=== PATIENT | female | born 1970 ===

== ENCOUNTER 2020-01-29 19:34 | Emergency (ER) | payer OTHER, SELFPAY ==
--- NOTE | 2020-01-29 21:26 | EDPHYS ---
Physician Documentation [facility] Name: Carmencita Graf Age: 49 yrs Sex: Female : 1970 Arrival Date: 01/29/2020 Time: 20:22 Bed 24 Private MD: ED Physician Pop Jaeger HPI: 01/29 00:10 This 49 yrs old Female presents to ER via Wheelchair with complaints of Leg Pain. snw 00:10 The patient presents with pain, that is acute. The complaints affect the bilateral snw ankles and feet. Context: The problem was sustained at home, resulted from a chronic condition, essential htn, PCP changed her HCTZ to 25mg from 12.5 but the pharmacy did not change dose when filled. Edema has improved at this time with elevation of lower extremities. Onset: The symptoms/episode began/occurred gradually, 2 day(s) ago, and became persistent. Associated signs and symptoms: The patient has no apparent associated signs or symptoms. Severity of symptoms: At their worst the symptoms were mild. The patient has experienced similar episodes in the past. It is unknown whether or not the patient has recently seen a physician. Historical: - Allergies: 01/28 20:26 No Known Allergies; mg2 - PMHx: 20:26 Hypertension; Diabetes - IDDM; CVA; mg2 - Immunization history:: Flu vaccine is up to date. - Social history:: Smoking status: Patient denies any tobacco usage or history of. Patient/guardian denies using alcohol, street drugs, IV drugs. ROS: 01/29 00:06 Constitutional: Negative for fever, chills, and weight loss, Eyes: Negative for injury, snw pain, redness, and discharge, ENT: Negative for injury, pain, and discharge, Neck: Negative for injury, pain, and swelling, Cardiovascular: Negative for chest pain, palpitations, and edema, Respiratory: Negative for shortness of breath, cough, wheezing, and pleuritic chest pain, Abdomen/GI: Negative for abdominal pain, nausea, vomiting, diarrhea, and constipation, Back: Negative for injury and pain, : Negative for injury, bleeding, discharge, and swelling, + frequency, urgency, burning on urination Neuro: Negative for headache, weakness, numbness, tingling, and seizure. Skin: Negative for injury, rash, and discoloration. MS/extremity: Positive for swelling, tenderness, of the right foot and left foot. Exam: 00:06 Constitutional: This is a well developed, well nourished patient who is awake, alert, snw and in no acute distress. Head/Face: Normocephalic, atraumatic. Eyes: Pupils equal round and reactive to light, extra-ocular motions intact. Lids and lashes normal. Conjunctiva and sclera are non-icteric and not injected. Cornea within normal limits. Periorbital areas with no swelling, redness, or edema. ENT: Nares patent. No nasal discharge, no septal abnormalities noted. Tympanic membranes are normal and external auditory canals are clear. Oropharynx with no redness, swelling, or masses, exudates, or evidence of obstruction, uvula midline. Mucous membranes moist. Neck: Trachea midline, no thyromegaly or masses palpated, and no cervical lymphadenopathy. Supple, full range of motion without nuchal rigidity, or vertebral point tenderness. No Meningismus. Chest/axilla: Normal chest wall appearance and motion. Nontender with no deformity. No lesions are appreciated. Cardiovascular: Regular rate and rhythm with a normal S1 and S2. No gallops, murmurs, or rubs. Normal PMI, no JVD. No pulse deficits. Respiratory: Lungs have equal breath sounds bilaterally, clear to auscultation and percussion. No rales, rhonchi or wheezes noted. No increased work of breathing, no retractions or nasal flaring. Abdomen/GI: Soft, non-tender, with normal bowel sounds. No distension or tympany. No guarding or rebound. No evidence of tenderness throughout. Back: No spinal tenderness. No costovertebral tenderness. Full range of motion. Skin: Warm, dry with normal turgor. Normal color with no rashes, no lesions, and no evidence of cellulitis. MS/ Extremity: Pulses equal, no cyanosis. Neurovascular intact. Full, normal range of motion. Neuro: Awake and alert, GCS 15, oriented to person, place, time, and situation. Cranial nerves II-XII grossly intact. Motor strength 5/5 in all extremities. Sensory grossly intact. Cerebellar exam normal. Normal gait. Psych: Awake, alert, with orientation to person, place and time. Behavior, mood, and affect are within normal limits. Vital Signs: 01/28 20:22 BP 186 / 101; Pulse 86; Resp 18; Temp 98.6; Pulse Ox 100% on R/A; Weight 81.65 kg; mg2 Height 5 ft. 0 in. (152.40 cm); 20:22 Body Mass Index 35.15 (81.65 kg, 152.40 cm) mg2 MDM: 21:10 Patient medically screened. snw 01/29 00:08 Data reviewed: vital signs, nurses notes. Data interpreted: Pulse oximetry: on room air snw is 100 %. Interpretation: acceptable. Counseling: I had a detailed discussion with the patient and/or guardian regarding: the historical points, exam findings, and any diagnostic results supporting the discharge/admit diagnosis, the presence of at least one elevated blood pressure reading (>120/80) during this emergency department visit, lab results, the need for outpatient follow up, for definitive care. Response to treatment: the patient's symptoms have mildly improved after treatment. Special discussion: I have referred the patient to see his PCP for further evaluation of high blood pressure. Based on the history and exam findings, there is no indication for further emergent testing or inpatient evaluation. I discussed with the patient/guardian the need to see the primary care provider for further evaluation of the symptoms. 01/28 21:22 Order name: Urine Microscopic Only [facility] 01/28 21:27 Order name: Urine Culture [facility] 01/28 20:35 Order name: Chest Single View XRAY; Complete Time: 21:46 snw 01/28 21:43 Order name: Urine Dipstick--Ancillary (enter results) tt3 01/28 21:03 Order name: Urine Dipstick-Ancillary (obtain specimen); Complete Time: 21:04 ls4 Administered Medications: 01/28 21:51 Drug: Hydrochlorothiazide 12.5 mg Route: PO; ls4 21:51 Drug: Rocephin (cefTRIAXone) 1 grams Route: IM; Site: left deltoid; ls4 Disposition: 01/29 05:58 Co-signature as Attending Physician, Pop Jaeger MD I agree with the assessment and tw4 plan of care. Disposition: 01/29/20 21:25 Discharged to Home. Impression: Edema, unspecified, Essential (primary) hypertension, Urinary tract infection, site not specified. - Condition is Stable. - Discharge Instructions: Urinary Tract Infection, Adult, DASH Eating Plan, Rehydration, Adult, Managing Your Hypertension, Form - Blood Pressure Record Sheet, Peripheral Edema. - Prescriptions for Augmentin 875- 125 mg Oral Tablet - take 1 tablet by ORAL route every 12 hours for 10 days; 20 tablet. Diflucan 150 mg Oral Tablet - take 1 tablet by ORAL route one time for 1 day To take upon completion of antibiotics; 1 tablet. - Work release form, Medication Reconciliation Form, Thank You Letter, Antibiotic Education, Prescription Opioid Use form. - Follow up: Private Physician; When: 2 - 3 days; Reason: Recheck today's complaints, Continuance of care, Re-evaluation by your physician. Follow up: Emergency Department; When: As needed; Reason: Worsening of condition. Signatures: Dispatcher [employer] EDMS Cristal Ventura FNP-C [employer] Pop Jaeger MD MD tw4 Bakari Echeverria RN RN mg2 Sanam Mejia RN RN ls4 Corrections: (The following items were deleted from the chart) 01/28 21:59 21:25 01/29/2020 21:25 Discharged to Home. Impression: Edema, unspecified; Essential ls4 (primary) hypertension; Urinary tract infection, site not specified. Condition is Stable. Forms are Medication Reconciliation Form, Thank You Letter, Antibiotic Education, Prescription Opioid Use. Follow up: Private Physician; When: 2 - 3 days; Reason: Recheck today's complaints, Continuance of care, Re-evaluation by your physician. Follow up: Emergency Department; When: As needed; Reason: Worsening of condition. snw
--- NOTE | 2020-01-29 21:26 | ER ---
Nurse's Notes [facility] Name: Carmencita Graf Age: 49 yrs Sex: Female : 1970 Arrival Date: 01/29/2020 Time: 20:22 Bed 24 Private MD: Diagnosis: Edema, unspecified;Essential (primary) hypertension;Urinary tract infection, site not specified Presentation: 01/28 20:22 Chief complaint: Patient states: i have bilateral leg swelling today. i also have mg2 bruise on my stomach. Coronavirus screen: Proceed with normal triage. Patient denies a cough. Patient denies shortness of breath or difficulty breathing. Patient denies measured and/or subjective temperature greater than 100.4F prior to today's visit. Patient denies travel on a cruise ship or to a country the [facility] currently lists as an affected area. Patient denies contact with known and/or suspected case of COVID-19. Ebola Screen: No symptoms or risks identified at this time. Initial Sepsis Screen: Does the patient meet any 2 criteria? No. Patient's initial sepsis screen is negative. Does the patient have a suspected source of infection? No. Patient's initial sepsis screen is negative. Risk Assessment: Do you want to hurt yourself or someone else? Patient reports no desire to harm self or others. Onset of symptoms was January 29, 2020. 20:22 Method Of Arrival: Wheelchair mg2 20:22 Acuity: CHARLEEN 3 mg2 Historical: - Allergies: 20:26 No Known Allergies; mg2 - PMHx: 20:26 Hypertension; Diabetes - IDDM; CVA; mg2 - Immunization history:: Flu vaccine is up to date. - Social history:: Smoking status: Patient denies any tobacco usage or history of. Patient/guardian denies using alcohol, street drugs, IV drugs. Screenin:47 Abuse screen: Denies threats or abuse. Denies injuries from another. Nutritional ls4 screening: No deficits noted. Tuberculosis screening: No symptoms or risk factors identified. Fall Risk None identified. Assessment: 20:44 General: Appears in no apparent distress. obese, Behavior is anxious. Pain: Complains ls4 of pain in right leg and left leg Pain currently is 7 out of 10 on a pain scale. Neuro: No deficits noted. Cardiovascular: Reports bruising Denies chest pain, diaphoresis, fatigue, lightheadedness, nausea, palpitations, shortness of breath, syncope, vomiting. Cardiovascular: Pulses are 2+ in right dorsalis pedis artery and left dorsalis pedis artery Edema is 1+ to left foot and right foot. Respiratory: Airway is patent Respiratory effort is even, unlabored, Respiratory pattern is regular, Breath sounds are clear bilaterally. Derm: Reports bruising. Musculoskeletal: Circulation, motion, and sensation intact. Capillary refill < 3 seconds, Range of motion: intact in all extremities, Swelling absent. Vital Signs: 20:22 BP 186 / 101; Pulse 86; Resp 18; Temp 98.6; Pulse Ox 100% on R/A; Weight 81.65 kg; mg2 Height 5 ft. 0 in. (152.40 cm); 20:22 Body Mass Index 35.15 (81.65 kg, 152.40 cm) mg2 ED Course: 20:22 Patient arrived in ED. ag3 20:25 Triage completed. mg2 20:26 Arm band placed on. mg2 20:34 Cristal Davey [facility]C [facility]. snw 20:34 Pop Jaeger MD is Attending Physician. snw 20:36 Sanam Mejia, ALEX is Primary Nurse. ls4 20:47 Patient has correct armband on for positive identification. Placed in gown. Bed in low ls4 position. Call light in reach. Side rails up X2. campus monitor on. Pulse ox on. NIBP on. Verbal reassurance given. Diet: Patient is NPO. 21:23 Chest Single View XRAY In Process Unspecified. EDMS Administered Medications: 21:51 Drug: Hydrochlorothiazide 12.5 mg Route: PO; ls4 21:51 Drug: Rocephin (cefTRIAXone) 1 grams Route: IM; Site: left deltoid; ls4 Outcome: 21:25 Discharge ordered by . snw 21:59 Patient left the ED. ls4 Addendum: 02/03/2020 19:36 Addendum: Culture Results: Positive urine culture. No further action required. Bacteria i w sensitive to prescribed antibiotic. Signatures: Dispatcher [employer] EDMS Cristal Ventura FNP-C [employer] Pia Walsh RN RN Bakari Echeverria RN RN [facility] Lillian John ag3 Roberto, Sanam, RN RN ls4
--- OUTSIDE RECORDS SUMMARY | 2020-01-29 21:30 | XMS REPORT | Continuity of Care Document ---
:1970 Author Organization [facility] t Address [address] [place] [address] Care Team Providers Name Role Phone Unavailable Unavailable Unavailable Payers Payer Name Policy Type Policy Number Effective Date Expiration Date S ource Problems This patient has no known problems. Allergies, Adverse Reactions, Alerts Allergy Allergy Status Severity Reaction(s) Onset Inactive Treating Comm ents Source Name Type Date Date Clinician No Known DA Active U 2018-07 [facility]14 [place] 00:00: [address] No Known DA Active U [facility] 24 [place] s 00:00: [address] Medications This patient has no known medications. Procedures This patient has no known procedures. Results Test Description Test Time Test Comments Results Result Comments Source COMPREHENSIVE METABOLIC PANEL 2019-06-22 16:41:00 Test Item Value Reference Range Interpretation Comme nts SODIUM (test code = NA) 132 mmol/L 136-145 L POTASSIUM (test code = K) 3.7 mmol/L 3.5-5.1 N CHLORIDE (test code = CL) 97 mmol/L 98-107 L CARBON DIOXIDE (test code = 30 mmol/L 21-32 N CO2) GLUCOSE (test code = GLU) 370 mg/dL 65-99 H BLOOD UREA NITROGEN (test code 16 mg/dL 7-18 N = BUN) GLOMERULAR FILTRATION RATE 71 R eporting units: (test code = GFR) ml/min/1.7 3m\S\2 (Modified MDRD Formula)If age < 18 years, GFR is not applicab le. KD/DOQI Clinical Practi ce Guidelines: Stage 1: Kidney damage w/normal or increased GF R >90Stage 2: Kidney damage w /mild decrease in GFR 60 - 89Stage 3: Moderate decrea se in GFR 30 - 59Stage 4: Severe decrease in GFR 15 - 29Stage 5: Kidney failure < 15 (or dialysis) CREATININE (test code = CREAT) 0.9 mg/dL 0.6-1.0 N TOTAL PROTEIN (test code = 7.4 g/dL 6.4-8.2 N PROT) ALBUMIN (test code = ALB) 3.4 g/dL 3.4-5.0 N GLOBULIN (test code = GLOB) 4.0 gm/dL 2.3-3.5 H ALBUMIN/GLOBULIN RATIO (test 0.9 1.5-2.2 L code = A/G) CALCIUM (test code = CA) 9.0 mg/dL 7.8-10.9 N BILIRUBIN TOTAL (test code = 0.3 mg/dL 0.0-1.1 N BILT) SGOT/AST (test code = AST) 23 U/L 15-37 N R eporting units: International Units/L SGPT/ALT (test code = ALT) 32 U/L 10-30 H R eporting units: International Units/L ALKALINE PHOSPHATASE TOTAL 90 U/L 45-117 N (test code = ALKP) COMPREHENSIVE METABOLIC [id number] 16:30:00 Test Item Value Reference Range Interpretation Comments SODIUM (test code = NA) 132 mmol/L 136-145 L POTASSIUM (test code = K) 3.7 mmol/L 3.5-5.1 N CHLORIDE (test code = CL) 97 mmol/L 98-107 L CARBON DIOXIDE (test code = CO2) 30 mmol/L 21-32 N GLUCOSE (test code = GLU) mg/dL 65-99 BLOOD UREA NITROGEN (test code = mg/dL 7-18 BUN) GLOMERULAR FILTRATION RATE (test code = GFR) CREATININE (test code = CREAT) mg/dL 0.6-1.0 TOTAL PROTEIN (test code = PROT) g/dL 6.4-8.2 ALBUMIN (test code = ALB) 3.4 g/dL 3.4-5.0 N GLOBULIN (test code = GLOB) gm/dL 2.3-3.5 ALBUMIN/GLOBULIN RATIO (test code 1.5-2.2 = A/G) CALCIUM (test code = CA) 9.0 mg/dL 7.8-10.9 N BILIRUBIN TOTAL (test code = BILT) mg/dL 0.0-1.1 SGOT/AST (test code = AST) U/L 15-37 SGPT/ALT (test code = ALT) U/L 10-30 ALKALINE PHOSPHATASE TOTAL (test U/L 45-117 code = ALKP) CBC W/AUTO [id number] 16:05:00 Test Item Value Reference Range Interpretation Comments WHITE BLOOD CELL (test code = 10.4 K/mm3 4.8-10.8 N WBC) RED BLOOD CELL (test code = RBC) 5.49 M/mm3 4.2-5.4 H HEMOGLOBIN (test code = HGB) 14.8 gm/DL 12.0-16.0 N HEMATOCRIT (test code = HCT) 42.8 % 34.7-43.3 N MEAN CELL VOLUME (test code = 78.0 fL 81-99 L MCV) MEAN CELL HGB (test code = MCH) 27.0 pg 27-31 N MEAN CELL HGB CONCETRATION (test 34.6 gm/dL 33-37 N code = MCHC) RED CELL DISTRIBUTION WIDTH (test 12.6 % 11.5-14.5 N code = RDW) PLATELET COUNT (test code = PLT) 296 X10(3) 130-400 N MEAN PLATELET VOLUME (test code = 11.7 fL 9.4-12.4 N MPV) NEUTROPHIL % (test code = NT%) 68.7 % 51.5-79.7 N IMMATURE GRANULOCYTE % (test code 0.300 % 0.108-0.322 N = IG%) LYMPHOCYTE % (test code = LY%) 22.6 % 14-40 N MONOCYTE % (test code = MO%) 5.9 % 4.0-10.2 N EOSINOPHIL % (test code = EO%) 1.8 % 0-4.1 N BASOPHIL % (test code = BA%) 0.7 % 0.1-0.7 N NUCLEATED RBC % (test code = 0 % 0-0 N NRBC%) NEUTROPHIL # (test code = NT#) 7.2 K/mm3 2.5-8.6 N IMMATURE GRANULOCYTE # (test code 0.030 K/mm3 0.0052-0.0224 H = IG#) LYMPHOCYTE # (test code = LY#) 2.4 K/mm3 1.1-3.6 N MONOCYTE # (test code = MO#) 0.6 K/mm3 0.3-0.9 N EOSINOPHIL # (test code = EO#) 0.19 # 0.0-0.4 N BASOPHIL # (test code = BA#) 0.07 K/mm3 0.0-0.2 N NUCLEATED RBC # (test code = 0.00 K/mm3 0.00-0.20 N NRBC#) [id number] 16:49:00 Test Item Value Reference Range Interpretation Comments GLUBED (test code = GLUBED) 332 mg/dL 70-110 H - CT HEAD/BRAIN W/O [id number] 14:08:00 [place]: [address]: ADM Name: MAYA GOODWIN [facility] : 1970 Age/S: 48/F [address] [facility] Unit #: [id number] Loc: [address] [place], [place] [address] Phys: Erick Martinez MD Acct: [id number] Dis Date: Status: ADM IN PHONE #: [phone] Exam Date: 06/05/2019 1324 FAX #: [phone] Reason: follow up acute cva CTDI: DLP: Automated exposure control, iterative reconstruction technique, and/oradjustment of mAand/or kV according to patient's size was utilized fooptimum radiation dose reduction. EXAMS: CPT CODE: [id number] CT HEAD/BRAIN W/O CONT 33864 CT head without contrast 06/05/2019 CLINICAL HISTORY: follow up acute cva TECHNIQUE: Axial noncontrast CT images through the head were obtained. This examination was performed according to our departmental dose optimization program, which includes automated exposure control, adjustment of the mA and/or kV according to patient size, and/or use of iterative reconstruction technique. COMPARISON: 06/04/2019 LOCATION: W1 FINDINGS: There is an unchanged small volume acute hemorrhagic infarct in the posterior left lentiform nucleus and adjacent gan radiata and posterior limb of the internal capsule. There are punctate foci of acute nonhemorrhagic ischemia scattered throughout the right cerebral hemisphere. There is no malignant hematoma, mass, hydrocephalus, or extra-axial collection. There is mild, but advanced for age microvascular and hypertensive encephalopathy in the supratentorial white matter and deep velez nuclei. The visualized paranasal sinuses and tympanomastoid cavities are well aerated. The skull is intact. IMPRESSION: 1. Since , no new intracranial abnormality and no remarkable change in intracranial appearance. 2. 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 3. Punctate acute nonhemorrhagic infarcts in the right cerebral hemisphere. PAGE 1 Signed Report (CONTINUED) [place]: [address]: ADM Name: GOODWINMAYA [facility] : 1970 Age/S: 48/F [address] [facility] Unit #: [id number] Loc: [address] [place], [place] [address] Phys: Erick Martinez MD Acct: [id number] Dis Date: Status: ADM IN PHONE #: [phone] Exam Date: 06/05/2019 1324 FAX #: [phone] Reason: follow up acute cva CTDI: DLP: Automated exposure control, iterative reconstruction technique, and/oradjustment of mA and/or kV according to patient's size was ut ilized fooptimum radiation dose reduction. EXAMS: CPT CODE: [id number] CT HEAD/BRAIN W/O CONT 87520 <Continued> 4. 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 Electronically Signed by NAOMI HENRY M.D. on06/05/2019 at 1408 Reported and signed by: NAOMI HENRY M.D. Facility ACR Accreditation for [place] - February 2012 CC: Erick Martinez MD; MD Grant Cai; Thuy Patiño MDTechnologist: FRANCO LUCAS RT(R) (ARRT); ... Transcribed Date/Time/By: 06/05/2019 (3766) : By: [email or web address] Orig Print D/T: S: 06/05/2019 (4423) PAGE 2 Signed Report [id number] 10:44:00 Test Item Value Reference Range Interpretation Comments GLUBED (test code = GLUBED) 263 mg/dL 70-110 H BASIC METABOLIC [id number] 08:17:00 Test Item Value Reference Range Interpretation Comments SODIUM (test code = 138 mmol/L 136-145 N NA) POTASSIUM (test code = 3.2 mmol/L 3.5-5.1 L K) CHLORIDE (test code = 103 mmol/L 98-107 N CL) CARBON DIOXIDE (test 31 mmol/L 21-32 N code = CO2) GLUCOSE (test code = 204 mg/dL 65-99 H GLU) BLOOD UREA NITROGEN 12 mg/dL 7-18 N (test code = BUN) GLOMERULAR FILTRATION 95 Report ing units: RATE (test code = GFR) ml/mi n/1.73m\S\2 (Modified MDRD Formula)If age < 18 years, GFR is n ot applicable. KD/ DOQI Clinical Practi ce Guidelines: Sta ge 1: Kidney damage w/normal or inc reased GFR >90Stag e 2: Kidney damage w /mild decrease in GFR 60 - 89Stage 3: Moderate decrea se in GFR 30 - 59Stage 4: Severe decrease in GFR 15 - 29Stage 5: Kidney failure < 15 (or dialysis) CREATININE (test code 0.7 mg/dL 0.6-1.0 N = CREAT) CALCIUM (test code = 8.6 mg/dL 7.8-10.9 N CA) CBC W/AUTO [id number] 08:12:00 Test Item Value Reference Range Interpretation Comments WHITE BLOOD CELL (test code = 10.0 K/mm3 4.8-10.8 WBC) RED BLOOD CELL (test code = RBC) 5.10 M/mm3 4.2-5.4 N HEMOGLOBIN (test code = HGB) 13.9 gm/DL 12.0-16.0 N HEMATOCRIT (test code = HCT) 41.0 % 34.7-43.3 N MEAN CELL VOLUME (test code = 80.4 fL 81-99 L MCV) MEAN CELL HGB (test code = MCH) 27.3 pg 27-31 N MEAN CELL HGB CONCETRATION (test 33.9 gm/dL 33-37 N code = MCHC) RED CELL DISTRIBUTION WIDTH (test 13.6 % 11.5-14.5 N code = RDW) PLATELET COUNT (test code = PLT) 269 X10(3) 130-400 N MEAN PLATELET VOLUME (test code = 11.6 fL 9.4-12.4 N MPV) NEUTROPHIL % (test code = NT%) 56.0 % 51.5-79.7 N IMMATURE GRANULOCYTE % (test code 0.200 % 0.108-0.322 N = IG%) LYMPHOCYTE % (test code = LY%) 33.5 % 14-40 N MONOCYTE % (test code = MO%) 7.1 % 4.0-10.2 N EOSINOPHIL % (test code = EO%) 2.7 % 0-4.1 N BASOPHIL % (test code = BA%) 0.5 % 0.1-0.7 N NUCLEATED RBC % (test code = 0 % 0-0 N NRBC%) NEUTROPHIL # (test code = NT#) 5.6 K/mm3 2.5-8.6 N IMMATURE GRANULOCYTE # (test code 0.020 K/mm3 0.0052-0.0224 N = IG#) LYMPHOCYTE # (test code = LY#) 3.3 K/mm3 1.1-3.6 N MONOCYTE # (test code = MO#) 0.7 K/mm3 0.3-0.9 N EOSINOPHIL # (test code = EO#) 0.27 # 0.0-0.4 N BASOPHIL # (test code = BA#) 0.05 K/mm3 0.0-0.2 N NUCLEATED RBC # (test code = 0.00 K/mm3 0.00-0.20 N NRBC#) BASIC METABOLIC [id number] 08:12:00 Test Item Value Reference Range Interpretation Comments SODIUM (test code = NA) 138 mmol/L 136-145 N POTASSIUM (test code = K) 3.2 mmol/L 3.5-5.1 L CHLORIDE (test code = CL) 103 mmol/L 98-107 N CARBON DIOXIDE (test code = CO2) 31 mmol/L 21-32 N GLUCOSE (test code = GLU) mg/dL 65-99 BLOOD UREA NITROGEN (test code = mg/dL 7-18 BUN) GLOMERULAR FILTRATION RATE (test code = GFR) CREATININE (test code = CREAT) mg/dL 0.6-1.0 CALCIUM (test code = CA) 8.6 mg/dL 7.8-10.9 N [id number] 05:32:00 Test Item Value Reference Range Interpretation Comments GLUBED (test code = GLUBED) 209 mg/dL 70-110 H [id number] 20:18:00 Test Item Value Reference Range Interpretation Comments GLUBED (test code = GLUBED) 272 mg/dL 70-110 H [id number] 18:31:00 Test Item Value Reference Range Interpretation Comments POTASSIUM (test code = K) 2.9 mmol/L 3.5-5.1 L [id number] 18:31:00 Test Item Value Reference Range Interpretation Comments MAGNESIUM (test code = MAG) 2.2 mg/dL 1.5-2.1 H [id number] 17:11:00 Test Item Value Reference Range Interpretation Comments GLUBED (test code = GLUBED) 90 mg/dL 70-110 N [id number] 13:59:00 Test Item Value Reference Range Interpretation Comments GLUBED (test code = GLUBED) 288 mg/dL 70-110 H - MRA NECK W/O [id number] 12:30:00 FAX: Gonzalo Wong MD [phone] [place]: [address]: ADM FAX: Rocio Norman FAX: Y Thuy Patiño MD Name: MAYA GOODWIN [facility] : 1970 Age/S: 48/F [address] [facility] Unit #: [id number] Loc: [address] [place], [place] [address] Phys: Thuy Patiño MD Acct: [id number] Dis Date: Status: ADM IN PHONE #: [phone] Exam Date: 06/04/2019 1214 FAX #: [phone] Reason: stroke EXAMS: CPT CODE: [id number] MRA NECK W/O CONT 64680 MRI brain and MRA head and neck without contrast 06/04/2019 12:25 PM CLINICAL INDICATION: Stroke COMPARISON: CT brain 06/03/2019 LOCATION: W1 TECHNIQUE: Multiplanar, multisequence MR imaging of the brain was performed utilizing the following imaging sequences: Axial T1, T2, FLAIR, GRE, and DWI; sagittal and coronal T1-weighted images. Two- and three- dimensional [id number]-ri-[id number] MRA images of the intra- and extracranial carotid and vertebral arterial circulations were obtained, from which maxim al intensity projection 3-D reconstructions were created. FINDINGS: MRI: There is an unchanged small volume acute hemorrhagic infarct in the posterior left lentiform nucleus and adjacent gan radiata and posterior limb of the internal capsule. There are punctate foci of acute nonhemorrhagic ischemia scattered throughout the right cerebral hemisphere. There is no malignant hematoma, mass, hydrocephalus, or extra-axial collection. There is mild, but advanced for age chronic microvascular hypertensive encephalopathy in the supratentorial white matter and deep velez nuclei. Normal appearing flow-voids are present in the major intracranial vascular structures. The sellar and pineal regions are normal. The craniovertebral junction is intact. The orbits, face, and skull base are without worrisome finding. MRA neck: There is no vessel occlusion or flow-limiting stenosis. There is no NASCET- quantifiable cervical internal carotid artery stenosis. Flow is antegrade in both vertebral arteries. MRA [place]: There is no vessel occlusion, flow-limiting stenosis, or aneurysm. IMPRESSION: PAGE 1 Signed Report (CONTINUED) FAX: Gonzalo Wong MD [phone] [place]: [address]: ADM FAX: Rocio Norman FAX: Thuy Salinas MD --------- Name: MAYA GOODWIN [facility] : 1970 Age/S: 48/F [address] [facility] Unit #: [id number] Loc: [facility] [place] [address] Phys: Thuy Rene MD Acct: [id number] Dis Date: Status: ADM IN PHONE #: [phone] Exam Date: 06/04/2019 1214 FAX #: [phone] Reason: stroke EXAMS: CPT CODE: [id number] MRA NECK W/O CONT 12868 <Continued> 1. 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 2. Punctate acute nonhemorrhagic infarcts in the right cerebral hemisphere. 3. 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 4. Unremarkable intracranial and extracranial MRAs. at 1230 Reported and signed by: NAOMI HENRY M.D. CC: MD Grant Cai; Rocio PARADA; Thuy Patiño MD Technologist: Nacho Cutler RT(R)(CT)(MRI)ARRT Transcribed Date/Time/By: 06/04/2019 (3900) :[email or web address] Orig Print D/T: S: 06/04/2019 (0701) PAGE 2 Signed Report- MRI BRAIN W/O [id number] 12:30:00 FAX: Gonzalo Wong MD [phone] [place]: [address]: ADM FAX: Rocio Norman FAX: Thuy Salinas MD Name: MAYA GOODWIN [facility] : 1970 Age/S: 48/F [address] Unit #: [id number] Loc: [address] [place], [place] [address] Phys: Thuy Patiño MD Acct: [id number] Dis Date: Status: ADM IN PHONE #: [phone] Exam Date: 06/04/2019 1214 FAX #: [phone] Reason: stroke EXAMS: CPT CODE: [id number] MRI BRAIN W/O CONTRAST 57237 MRI brain and MRA head and neck without contrast 06/04/2019 12:25 PM CLINICAL INDICATION: Stroke COMPARISON: CT brain 06/03/2019 L OCATION: W1 TECHNIQUE: Multiplanar, multisequence MR imaging of the brain was performed utilizing the following imaging sequences: Axial T1, T2, FLAIR, GRE, and DWI; sagittal and coronal T1-weighted images. Two- and three-dimensional [id number]-tl-[id number] MRA images of the intra- and extracranial carotid and vertebral arterial circulations were obtained, from which maximal intensity projection 3-D reconstructions were created. FINDINGS: MRI: There is an unchanged small volume acute hemorrhagic infarct in the posterior left lentiform nucleus and adjacent gan radiata and posterior limb of the internal capsule. There are punctate foci of acute nonhemorrhagic ischemia scattered throughout the right cerebral hemisphere. There is no malignant hematoma, mass, hydrocephalus, or extra-axial collection. There is mild, but advanced for age chronic microvascular hypertensive encephalopathy in the supratentorial white matter and deep vleez nuclei. Normal appearing flow-voids are present in the major intracranial vascular structures. The sellar and pineal regions are normal. The craniovertebral junction is intact. The orbits, face, and skull base are without worrisome finding. MRA neck: There is no vessel occlusion or flow-limiting stenosis. There is no NASCET-quantifiable cervical internal carotid artery stenosis. Flow is antegrade in both vertebral arteries. MRA [place]: There is no vessel occlusion, flow-limiting stenosis, or aneurysm. IMPRESSION: PAGE 1 Signed Report (CONTINUED) FAX: Gonzalo Wong MD [phone] [place]: [address]: ADM FAX: Rocio Norman FAX: Thuy Salinas MD --------- Name: MAYA GOODWIN [facility] : 1970 Age/S: 48/F [address] [facility] Unit #: [id number] Loc: [address] [place], [place] [address] Phys: Thuy Rene MD Acct: [id number] Dis Date: Status: ADM IN PHONE #: [phone] Exam Date: 06/04/2019 1214 FAX #: [phone] Reason: stroke EXAMS: CPT CODE: [id number] MRI BRAIN W/O CONTRAST 86586 <Continued> 1. 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 2. Punctate acute nonhemorrhagic infarcts in the right cerebral hemisphere. 3. 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 4. Unremarkable intracranial and extracranial MRAs. at 1230 Reported and signed by: NAOMI HENRY M.D. CC: MD Grant Cai; Rocio PARADA; Thuy Patiño MD Technologist: Nacho Cutler RT(R)(CT)(MRI)ARRT Transcribed Date/Time/By: 06/04/2019 (1230) :[email or web address] Orig Print D/T: S: 06/04/2019 (7856) PAGE 2 Signed Report- MRA HEAD W/O [id number] 12:30:00 FAX: Gonzalo Wong MD [phone] [place]: [facility] St: ADM FAX: Rocio Norman FAX: Thuy Salinas MD Name: MAYA GOODWIN [facility] : 1970 Age/S: 48/F [address] [facility] Unit #: [id number] Loc: [address] [place], [place] [address] Phys: Thuy Patiño MD Acct: [id number] Dis Date: Status: ADM IN PHONE #: [phone] Exam Date: 06/04/2019 1214 FAX #: [phone] Reason: stroke EXAMS: CPT CODE: [id number] MRA HEAD W/O CONT 94951 MRI brain and MRA head and neck without contrast 06/04/2019 12:25 PM CLINICAL INDICATION: Stroke COMPARISON: CT brain 06/03/2019 LOCATION: W1 TECHNIQUE: Multiplanar, multisequence MR imaging of the brain was performed utilizing the following imaging sequences: Axial T1, T2, FLAIR, GRE, and DWI; sagittal and coronal T1-weighted images. Two- and three- dimensional [id number]-nl-zgkbao MRA images of the intra- and extracranial carotid and vertebral arterial circulations were obtained, from which maxim al intensity projection 3-D reconstructions were created. FINDINGS: MRI: There is an unchanged small volume acute hemorrhagic infarct in the posterior left lentiform nucleus and adjacent gan radiata and posterior limb of the internal capsule. There are punctate foci of acute nonhemorrhagic ischemia scattered throughout the right cerebral hemisphere. There is no malignant hematoma, mass, hydrocephalus, or extra-axial collection. There is mild, but advanced for age chronic microvascular hypertensive encephalopathy in the supratentorial white matter and deep velez nuclei. Normal appearing flow-voids are present in the major intracranial vascular structures. The sellar and pineal regions are normal. The craniovertebral junction is intact. The orbits, face, and skull base are without worrisome finding. MRA neck: There is no vessel occlusion or flow-limiting stenosis. There is no NASCET- quantifiable cervical internal carotid artery stenosis. Flow is antegrade in both vertebral arteries. MRA [place]: There is no vessel occlusion, flow-limiting stenosis, or aneurysm. IMPRESSION: PAGE 1 Signed Report (CONTINUED) FAX: Gonzalo Wong MD [phone] [place]: [address]: ADM FAX: Rocio Norman FAX: Thuy Salinas MD --------- Name: MAYA GOODWIN [facility] : 1970 Age/S: 48/F [address] [facility] Unit #: [id number] Loc: [address] [place], [place] [address] Phys: Maverick tel,Thuy Sanchez MD Acct: [id number] Dis Date: Status: ADM IN PHONE #: [phone] Exam Date: 06/04/2019 1214 FAX #: [phone] Reason: stroke EXAMS: CPT CODE: [id number] MRA HEAD W/O CONT 31462 <Continued> 1. 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 2. Punctate acute nonhemorrhagic infarcts in the right cerebral hemisphere. 3. 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 4. Unremarkable intracranial and extracranial MRAs. at 1230 Reported and signed by: NAOMI HENRY M.D. CC: MD Grant Cai; Rocio PARADA; Thuy Patiño MD Technologist: Nacho Cutler RT(R)(CT)(MRI)ARRT Transcribed Date/Time/By: 06/04/2019 (5035) :[email or web address] Orig Print D/T: S: 06/04/2019 (9557) PAGE 2 Signed [id number] 12:19:00 Test Item Value Reference Range Interpretation Comments GLUBED (test code = GLUBED) 337 mg/dL 70-110 H BASIC METABOLIC [id number] 03:56:00 Test Item Value Reference Range Interpretation Comments SODIUM (test code = 138 mmol/L 136-145 N NA) POTASSIUM (test code = 2.5 mmol/L 3.5-5.1 L K) CHLORIDE (test code = 105 mmol/L 98-107 N CL) CARBON DIOXIDE (test 25 mmol/L 21-32 N code = CO2) GLUCOSE (test code = 220 mg/dL 65-99 H GLU) BLOOD UREA NITROGEN 19 mg/dL 7-18 H (test code = BUN) GLOMERULAR FILTRATION 46 Report ing units: RATE (test code = GFR) ml/mi n/1.73m\S\2 (Modified MDRD Formula)If age < 18 years, GFR is n ot applicable. KD/ DOQI Clinical Practi ce Guidelines: Sta ge 1: Kidney damage w/normal or inc reased GFR >90Stag e 2: Kidney damage w /mild decrease in GFR 60 - 89Stage 3: Moderate decrea se in GFR 30 - 59Stage 4: Severe decrease in GFR 15 - 29Stage 5: Kidney failure < 15 (or dialysis) CREATININE (test code 1.3 mg/dL 0.6-1.0 H = CREAT) CALCIUM (test code = 8.0 mg/dL 7.8-10.9 N CA) [id number] 03:56:00 Test Item Value Reference Range Interpretation Comments PHOSPHOROUS (test code = PHOS) 3.7 mg/dL 2.5-4.9 N [id number] 03:56:00 Test Item Value Reference Range Interpretation Comments MAGNESIUM (test code = MAG) 1.8 mg/dL 1.5-2.1 N CBC W/AUTO [id number] 03:38:00 Test Item Value Reference Range Interpretation Comments WHITE BLOOD CELL (test code = 15.5 K/mm3 4.8-10.8 H WBC) RED BLOOD CELL (test code = RBC) 5.31 M/mm3 4.2-5.4 N HEMOGLOBIN (test code = HGB) 14.2 gm/DL 12.0-16.0 N HEMATOCRIT (test code = HCT) 41.4 % 34.7-43.3 N MEAN CELL VOLUME (test code = 78.0 fL 81-99 L MCV) MEAN CELL HGB (test code = MCH) 26.7 pg 27-31 L MEAN CELL HGB CONCETRATION (test 34.3 gm/dL 33-37 N code = MCHC) RED CELL DISTRIBUTION WIDTH (test 13.5 % 11.5-14.5 N code = RDW) PLATELET COUNT (test code = PLT) 271 X10(3) 130-400 N MEAN PLATELET VOLUME (test code = 11.3 fL 9.4-12.4 N MPV) NEUTROPHIL % (test code = NT%) 67.6 % 51.5-79.7 N IMMATURE GRANULOCYTE % (test code 0.300 % 0.108-0.322 N = IG%) LYMPHOCYTE % (test code = LY%) 26.5 % 14-40 N MONOCYTE % (test code = MO%) 4.8 % 4.0-10.2 N EOSINOPHIL % (test code = EO%) 0.4 % 0-4.1 N BASOPHIL % (test code = BA%) 0.4 % 0.1-0.7 N NUCLEATED RBC % (test code = 0 % 0-0 N NRBC%) NEUTROPHIL # (test code = NT#) 10.5 K/mm3 2.5-8.6 H IMMATURE GRANULOCYTE # (test code 0.050 K/mm3 0.0052-0.0224 H = IG#) LYMPHOCYTE # (test code = LY#) 4.1 K/mm3 1.1-3.6 H MONOCYTE # (test code = MO#) 0.8 K/mm3 0.3-0.9 N EOSINOPHIL # (test code = EO#) 0.06 # 0.0-0.4 N BASOPHIL # (test code = BA#) 0.06 K/mm3 0.0-0.2 N NUCLEATED RBC # (test code = 0.00 K/mm3 0.00-0.20 N NRBC#) [id number] 21:37:00 Test Item Value Reference Range Interpretation Comments GLUBED (test code = GLUBED) 121 mg/dL 70-110 H [id number] 21:37:00 Test Item Value Reference Range Interpretation Comments GLUBED (test code = GLUBED) 88 mg/dL 70-110 N [id number] 21:30:00 Test Item Value Reference Range Interpretation Comments TRIGLYCERIDES (test code = TRIG) 390 mg/dL 30-200 H [id number] 18:57:00 Test Item Value Reference Range Interpretation Comments GLUBED (test code = GLUBED) 162 mg/dL 70-110 H [id number] 18:57:00 Test Item Value Reference Range Interpretation Comments GLUBED (test code = GLUBED) 304 mg/dL 70-110 H [id number] 15:50:00 Test Item Value Reference Range Interpretation Comments GLUBED (test code = GLUBED) 419 mg/dL 70-110 HH [id number] 15:42:00 Test Item Value Reference Range Interpretation Comments GLUBED (test code = GLUBED) 431 mg/dL 70-110 HH [id number] 14:44:00 Test Item Value Reference Range Interpretation Comments GLUBED (test code = GLUBED) 495 mg/dL 70-110 HH [id number] 12:04:00 Test Item Value Reference Range Interpretation Comments GLUBED (test code = GLUBED) 379 mg/dL 70-110 H - CT HEAD/BRAIN W/O [id number] 07:15:00 [place]: [address]: ADM Name: [facility] : 1970 Age/S: 48/F [address] Unit #: [id number] Loc: [address] [place], [place] [address] Phys: Thuy Patiño MD Acct: [id number] Dis Date: Status: ADM IN PHONE #: [phone] Exam Date: 06/03/2019 0658 FAX #: [phone] Reason: stroke CTDI: DLP: Automated exposure control, iterative reconstruction technique, and/oradjustment of mAand/or kV according to patient's size was utilized fooptimum radiation dose reduction. EXAMS: CPT CODE: [id number] CT HEAD/BRAIN W/O CONT 84769 Exam: - CT HEAD/BRAIN W/O CONT Indication: stroke Technique: Multidetector images (5 mm slice thickness) were obtained from the base of the skull to the vertex without contrast enhancement. This CT exam was performed using one or more of the following dose reduction techniques: Automated exposure control; Adjustment of the mA and/or kV according to patient size; Use of iterative reconstruction technique. Comparison: June 03, 2019 at 0340 hours. Findings: Ventricles are symmetric in shape and size. Again noted is the hyperdensity within the left basal ganglion measuring 1.3 x 1.4 x 2.0 cm, consistent with intraparenchymalhemorrhage. The size is similar to previous exam. There is mild surrounding edema, not significantly changed. There is a subtle hyper dense focus within the right basal ganglion measuring 6 mm, consistent with a faint petechial hemorrhage. This is similar in appearance to previous exam with no significant surrounding edema. The basal cisterns are well visualized. There is no mass effect or midline shift. The bony calvarium is intact. Paranasal sinuses and mastoid air cells are adequately aerated. Impression: Stable left b kimberly ganglion hemorrhage, unchanged in size. There is mild surrounding edema. Suspect a 6 mm petechial hemorrhage within the right basal ganglion which is unchanged in size. There is no significant edema surrounding this lesion. No new sites of hemorrhage. Other findings described above. PAGE 1 Signed Report (CONTINUED) [place]: [facility] St: ADM Name: [facility]A [facility] : 1970 Age/S: 48/F [address] Unit #: [id number] Loc: [address] [place], [place] [address] Phys: Thuy Patiño MD Acct: [id number] Dis Date: Status: ADM IN PHONE #: [phone] Exam Date: 06/03/2019 0658 FAX #: [phone] Reason: stroke CTDI: DLP: Automated exposure control, iterative reconstruction technique, and/oradjustment of mA and/or kV according to patient's size was utilized fooptimum radiation dose reduction. EXAMS: CPT CODE: [id number] CT HEAD/BRAIN W/O CONT 48693 <Continued> at 0715 Reported and signed by: SILVANO CALDERON MD Facility ACR Accreditation for CT - February 2012 CC: MD Grant Cai; Noé Tello OPTOMETRY ASSISTANT; Thuy Patiño MD Technologist: Nacho Cutler RT(R)(CT)(MRI)ARRT Transcribed Date/Time/By: 06/03/2019 (0715) : By: [email or web address] Orig Print D/T: S: 06/03/2019 (0718) PAGE2 Signed [id number] 05:56:00 Test Item Value Reference Range Interpretation Comments GLUBED (test code = GLUBED) 359 mg/dL 70-110 H COMPREHENSIVE METABOLIC [id number] 05:18:00 Test Item Value Reference Range Interpretation Comments SODIUM (test code = 133 mmol/L 136-145 L NA) POTASSIUM (test code 4.3 mmol/L 3.5-5.1 N = K) CHLORIDE (test code = 101 mmol/L 98-107 N CL) CARBON DIOXIDE (test 25 mmol/L 21-32 N code = CO2) GLUCOSE (test code = 317 mg/dL 65-99 H GLU) BLOOD UREA NITROGEN 9 mg/dL 7-18 N (test code = BUN) GLOMERULAR FILTRATION 95 Report ing units: RATE (test code = ml/min/1.7 3m\S\2 GFR) (Modified MDRD Formula)If age < 18 years, GFR is n ot applicable. KD/ DOQI Clinical Practi ce Guidelines: Sta ge 1: Kidney damage w /normal or increased GF R >90Stage 2: Kid rich damage w/mild d ecrease in GFR 60 - 89Stage 3: Mode rate decrease in GFR 30 - 59Stage 4: Ginny re decrease in GFR 15 - 29Stage 5: Kidn ey failure < 15 (or alie lysis) CREATININE (test code 0.7 mg/dL 0.6-1.0 N = CREAT) TOTAL PROTEIN (test 7.7 g/dL 6.4-8.2 N code = PROT) ALBUMIN (test code = 3.0 g/dL 3.4-5.0 L ALB) GLOBULIN (test code = 4.7 gm/dL 2.3-3.5 H GLOB) ALBUMIN/GLOBULIN 0.6 1.5-2.2 L RATIO (test code = A/G) CALCIUM (test code = 8.1 mg/dL 7.8-10.9 N CA) BILIRUBIN TOTAL (test 0.7 mg/dL 0.0-1.1 code = BILT) SGOT/AST (test code = 45 U/L 15-37 H Report ing units: AST) International U nits/L SGPT/ALT (test code = 30 U/L 10-30 N Report ing units: ALT) International U nits/L ALKALINE PHOSPHATASE 104 U/L 45-117 N TOTAL (test code = ALKP) LIPID PROFILE (CORONARY RISK)2019-06-03 05:18:00 Test Item Value Reference Range Interpretation Comments TRIGLYCERIDES (test code 493 mg/dL 30-200 H = TRIG) CHOLESTEROL (test code = 240 mg/dL 120-200 H CHOL) CHOLESTEROL/HDL RATIO 6.3 4.4-5.0 H (test code = CHOLHDL) HDL CHOLESTEROL (test 38 mg/dL 35-60 N code = HDL) LIPOPROTEIN LDL (test 103 mg/dl 5-100 H LDL code = LDL) REFERENCE<10 0 mg/dl---------O ptim [id number] mg/dl------Near optimal/above [id number] mg/dl------Isidro erli ne hrif008-114 mg/dl------High >190 mg/dl---------V joey High LIPOPROTEIN VLDL (test 98.6 mg/dL 6-40 H code = VLDL) COMPREHENSIVE METABOLIC [id number] 05:15:00 Test Item Value Reference Range Interpretation Comments SODIUM (test code = NA) 133 mmol/L 136-145 L POTASSIUM (test code = K) 4.3 mmol/L 3.5-5.1 N CHLORIDE (test code = CL) 101 mmol/L 98-107 N CARBON DIOXIDE (test code = CO2) 25 mmol/L 21-32 N GLUCOSE (test code = GLU) mg/dL 65-99 BLOOD UREA NITROGEN (test code = mg/dL 7-18 BUN) GLOMERULAR FILTRATION RATE (test code = GFR) CREATININE (test code = CREAT) mg/dL 0.6-1.0 TOTAL PROTEIN (test code = PROT) g/dL 6.4-8.2 ALBUMIN (test code = ALB) 3.0 g/dL 3.4-5.0 L GLOBULIN (test code = GLOB) gm/dL 2.3-3.5 ALBUMIN/GLOBULIN RATIO (test code 1.5-2.2 = A/G) CALCIUM (test code = CA) 8.1 mg/dL 7.8-10.9 N BILIRUBIN TOTAL (test code = BILT) mg/dL 0.0-1.1 SGOT/AST (test code = AST) U/L 15-37 SGPT/ALT (test code = ALT) U/L 10-30 ALKALINE PHOSPHATASE TOTAL (test U/L 45-117 code = ALKP) LIPID PROFILE (CORONARY RISK)2019-06-03 05:15:00 Test Item Value Reference Range Interpretation Comments TRIGLYCERIDES (test code = TRIG) mg/dL 30-200 CHOLESTEROL (test code = CHOL) mg/dL 120-200 CHOLESTEROL/HDL RATIO (test code = 4.4-5.0 CHOLHDL) HDL CHOLESTEROL (test code = HDL) mg/dL 35-60 LIPOPROTEIN LDL (test code = LDL) mg/dl 5-100 LIPOPROTEIN VLDL (test code = VLDL) mg/dL 6-40 GLYCOSYLATED HEMOGLOBIN (HA1C)2019-06-03 05:08:00 Test Item Value Reference Range Interpretation Comments GLYCOSYLATED HEMOGLOBIN (HA1C) (test 11.5 % 4.4-6.4 H code = GLYHGB) MEAN BLOOD GLUCOSE [id number] 05:08:00 Test Item Value Reference Range Interpretation Comments MEAN BLOOD GLUCOSE CALCULATION (test 283.4 code = MBGCALC) DRUGS OF ABUSE SCREEN [id number] 04:35:00 Test Item Value Reference Range Interpretation Comments URN TRICYCLICS (test code = Negative NEGATIVE TRICYCURN) URN COCAINE (test code = COCAURN) Negative NEGATIVE URN CANNABINOIDS (test code = Negative NEGATIVE CANNABURN) URN AMPHETAMINE (test code = Negative NEGATIVE AMPHETURN) URN BARBITURATE (test code = Negative NEGATIVE BARBITURN) URN BENZODIAZEPINE (test code = Negative NEGATIVE BENZOURN) URN OPIATES (test code = OPIATURN) Negative NEGATIVE URN PHENCYCLIDINE (PCP) (test code = Negative NEGATIVE PHENCURN) URN METHADONE (test code = METHAURN) Negative NEGATIVE UDS PROCEDURAL CONTROL VERIFIED? YKIT LOT # [id number]. DATE [id number] FUNCTION [id number] 04:23:00 Test Item Value Reference Range Interpretation Comments TOTAL PROTEIN (test 7.4 g/dL 6.4-8.2 N code = PROT) ALBUMIN (test code = 3.1 g/dL 3.4-5.0 L ALB) GLOBULIN (test code = 4.3 gm/dL 2.3-3.5 H GLOB) ALBUMIN/GLOBULIN 0.7 1.5-2.2 L RATIO (test code = A/G) BILIRUBIN TOTAL (test 0.5 mg/dL 0.0-1.1 N code = BILT) BILIRUBIN DIRECT <0.1 mg/dL 0.05-0.3 N (test code = BILD) BILIRUBIN INDIRECT 0.4 mg/dL 0.0-0.6 N (test code = BILIND) SGOT/AST (test code = 44 U/L 15-37 H Report ing units: AST) International U nits/L SGPT/ALT (test code = 31 U/L 10-30 H Report ing units: ALT) International U nits/L ALKALINE PHOSPHATASE 87 U/L 45-117 N TOTAL (test code = ALKP) [id number] 04:23:00 Test Item Value Reference Range Interpretation Comments ALCOHOL (test code <3 mg/dL 0-50 N THE PHARM ALOGICAL RESPONSE = ALC) TO BLOOD ALCOHO L LEVELS MAY VARYFROM IN DIVIDUAL TO INDIVIDUAL. THE FATAL CONCENTRATION H ASBEEN REPORTED TO BE GREATER THAN 400 MG/DL. THE PHYSIOLOGICAL A ND PSYCHOLOGICAL E FFECTS OF ETHANOL DONOT N ECESSARILY CORRELATE WITH URINARY CONCENTRATIONS. THEPRESENCE OF ETHANOL IN URINE IS ONLY A N INDICATION OF RECENTINGESTION . DETERMINATIONS ON SERUM, PLASMA, OR WHOL E BLOODARE NEEDED TO ASSES S THE EFFECT. PROTHROMBIN [id number] 04:15:00 Test Item Value Reference Interpretation Comments Range PROTHROMBIN TIME 10.7 SECONDS 9.9-11.6 N PATIENT (test code = PTP) INTERNATIONAL 1.04 0.93-1.2 N Recommended Th erapeutic NORMAL RATIO (test PT Ratios For Oral code = INR) AnticoagualantT herapy. CONDITION INT'L NORMALIZED PT R --------- ------ Prophylaxis of venous thrombosis 2.0 - 3.0in hig h risk medical or surgicalpatient s, treatment of venousthrombosi s, prevention of e mbolism. Prevention of r ecurrent embolism, 3.0 - 4.5or treatme nt of patients with mechanicalprost hetic heart valves. IS THE PATIENT ON ANY ANTICOAGULANTS? NTHROMBOPLASTIN TIME [id number] 04:15:00 Test Item Value Reference Range Interpretation Comments THROMBOPLASTIN TIME PARTIAL 23.8 SECONDS 23.0-32.0 N (test code = PTT) IS THE PATIENT ON ANY ANTICOAGULANTS? NPROTHROMBIN [id number] 04:14:00 Test Item Value Reference Interpretation Comments Range PROTHROMBIN TIME 10.7 SECONDS 9.9-11.6 N PATIENT (test code = PTP) INTERNATIONAL 1.04 0.93-1.2 N Recommended Th erapeutic NORMAL RATIO (test PT Ratios For Oral code = INR) AnticoagualantT herapy. CONDITION INT'L NORMALIZED PT R --------- ------ Prophylaxis of venous thrombosis 2.0 - 3.0in hig h risk medical or surgicalpatient s, treatment of venousthrombosi s, prevention of e mbolism. Prevention of r ecurrent embolism, 3.0 - 4.5or treatme nt of patients with mechanicalprost hetic heart valves. IS THE PATIENT ON ANY ANTICOAGULANTS? NTHROMBOPLASTIN TIME [id number] 04:14:00 Test Item Value Reference Range Interpretation Comments THROMBOPLASTIN TIME PARTIAL (test SECONDS 23.0-32.0 code = PTT) IS THE PATIENT ON ANY ANTICOAGULANTS? NTROPONIN I [id number] 04:07:00 Test Item Value Reference Range Interpretation Comments TROPONIN I RAPID 0.00 NG/ML 0.00-0.08 N An elevated troponin value (test code = alone is not merlos fficient TROPIRAP) todiagnose a my ocardial infarction. Rat her, the patient'sclinic al presentation (h istory, physical exam) and ECGshould be us ed in conjuction with troponin in the diagnostice valuation of suspected myoca rdial infaction. A se rialsampling protocol is rec ommended to facilitate theidentificati on of temporal change s in troponin levelscharacter istic of OR. CBC W/AUTO [id number] 03:56:00 Test Item Value Reference Range Interpretation Comments WHITE BLOOD CELL (test code = 11.3 K/mm3 4.8-10.8 H WBC) RED BLOOD CELL (test code = RBC) 5.64 M/mm3 4.2-5.4 H HEMOGLOBIN (test code = HGB) 15.5 gm/DL 12.0-16.0 N HEMATOCRIT (test code = HCT) 42.6 % 34.7-43.3 N MEAN CELL VOLUME (test code = 75.5 fL 81-99 L MCV) MEAN CELL HGB (test code = MCH) 27.5 pg 27-31 N MEAN CELL HGB CONCETRATION (test 36.4 gm/dL 33-37 N code = MCHC) RED CELL DISTRIBUTION WIDTH (test 13.0 % 11.5-14.5 N code = RDW) PLATELET COUNT (test code = PLT) 264 X10(3) 130-400 N MEAN PLATELET VOLUME (test code = 11.8 fL 9.4-12.4 N MPV) NEUTROPHIL % (test code = NT%) 57.9 % 51.5-79.7 N IMMATURE GRANULOCYTE % (test code 0.400 % 0.108-0.322 H = IG%) LYMPHOCYTE % (test code = LY%) 32.1 % 14-40 N MONOCYTE % (test code = MO%) 6.8 % 4.0-10.2 N EOSINOPHIL % (test code = EO%) 2.1 % 0-4.1 N BASOPHIL % (test code = BA%) 0.7 % 0.1-0.7 N NUCLEATED RBC % (test code = 0 % 0-0 N NRBC%) NEUTROPHIL # (test code = NT#) 6.5 K/mm3 2.5-8.6 N IMMATURE GRANULOCYTE # (test code 0.040 K/mm3 0.0052-0.0224 H = IG#) LYMPHOCYTE # (test code = LY#) 3.6 K/mm3 1.1-3.6 N MONOCYTE # (test code = MO#) 0.8 K/mm3 0.3-0.9 N EOSINOPHIL # (test code = EO#) 0.24 # 0.0-0.4 N BASOPHIL # (test code = BA#) 0.08 K/mm3 0.0-0.2 N NUCLEATED RBC # (test code = 0.00 K/mm3 0.00-0.20 N NRBC#) CHEMISTRY 8 [id number] 03:53:00 Test Item Value Reference Range Interpretation Comments IONIZED CALCIUM (test code = 0.95 mmol/L 1.13-1.32 L CAIABG) ISTAT-TCO2 VENOUS (test code = 27 MMOL/L 24-30 N TCO2VP) ISTAT-HEMOGLOBIN (test code = 15.3 G/DL 12.0-16.0 N HBP) ISTAT-HEMATOCRIT (test code = 45 % 44.0-56.0 N HCTP) ISTAT-SODIUM (test code = NAP) 136 MMOL/L 136-145 N ISTAT-POTASSIUM (test code = KP) 3.6 MMOL/L 3.5-5.1 N ISTAT-CHLORIDE (test code = CLP) 98 MMOL/L 98-107 N ISTAT GLUCOSE (test code = GLUP) 329 MG/DL 65-99 H ISTAT-BUN (test code = BUNP) 9 MG/DL 7-18 N BEDSIDE CREATININE (test code = 0.5 MG/DL 0.6-1.0 L CREATBED) - CT HEAD/BRAIN W/O [id number] 03:48:00 [place]: [facility] St: ADM Name: MAYA GOODWIN [facility] : 1970 Age/S: 48/F [address] [facility] Unit#: [id number] Loc: [place], [place] [address] Phys: Jonathan Flanagan MD Acct: [id number] Dis Date: Status: ADM IN PHONE #: [phone] Exam Date: 06/03/2019 0341 FAX #: [phone] Reason: rule out hemorrhagic stroke CTDI: DLP: Automated exposure control, iterative reconstruction technique, and/oradjustment of mA and/or kV according to patient's size was utilized fooptimum radiation dose reduction. EXAMS: CPT CODE: [id number] CT HEAD/BRAIN W/O CONT 24426 Exam: CT of the brain without contrast. History: Evaluate hemorrhagic stroke Technique: Contiguous axialCT images were obtained from the skull base through the vertex without contrast. One or more ofthe following dose reduction techniques were used: Automated exposure control, adjustment of the mA and/or kV according to patient size, and/or utilization of iterative reconstruction technique. Comparison: None available Location: R16 Findings: There is a 1.9 cm focus of heterogeneous hyperdensity seen within the left basal gangliaconcerning for hemorrhage. A few small/punctate right periventricular hyperdensities are seen with a relatively rounded appearance also questionably concerning for possible early hemorrhage. No significant mass effect or edema is appreciated this time. Recommend close interval follow-up with CT The basal cisterns are patent. There is no mass effect or midline shift. There are no extra-axial fluid collections. Paranasal sinuses and mastoid air cells are clear. Impression: There is a 1.9 cm focus of heterogeneous hyperdensity seen within the left basal ganglia concerning for hemorrhage. This finding was communicated toDr. Castillo at 3:46 AM. A few small/punctate right periventricular hyperdensities are seen with a relatively rounded appearance are nonspecific but could possibly represent early hemorrhage. No significant mass effect or edema is appreciated this time. Recommend close interval follow-up with CT in at least 4 hours or sooner in the setting of clinical decompensation PAGE 1 Signed Report (CONTINUED) [place]: [facility] St: ADM Name: CHRISTAMAYA [facility] : 1970 Age/S: 48/F [address] [facility] Unit #: [id number] Loc: [place], [place] [address] Phys: Jonathan Flanagan MD Acct: [id number] Dis Date: Status:ADM IN PHONE #: [phone] Exam Date: 06/03/2019 034 FAX #: [phone] Reason: rule out hemorrhagic stroke CTDI: DLP: Automated exposure control, iterative reconstruction technique, and/oradjustment of mA and/or kV according to patient's size was utilized fooptimum radiation dose reduction. EXAMS: CPT CODE: [id number] CT HEAD/BRAIN W/O CONT 07858 <Continued> at 0348 Reported and signed by: SAMANTHA BEDOYA M.D. Facility ACR Accreditation for CT - February 2012 CC: Jonathan Flanagan MD Technologist: GAMEZ,LINA RT(R)(CT)(ARRT) Transcribed Date/Time/By: 06/03/2019 (0348) : By: [email or web address] Orig Print D/T: S: 06/03/2019 (0352) PAGE 2 Signed ReportCOMPREHENSIVE METABOLIC [id number] 17:06:00 Test Item Value Reference Range Interpretation Comments SODIUM (test code = 135 mmol/L 136-145 L NA) POTASSIUM (test code 3.0 mmol/L 3.5-5.1 L = K) CHLORIDE (test code = 99 mmol/L 98-107 N CL) CARBON DIOXIDE (test 28 mmol/L 21-32 N code = CO2) GLUCOSE (test code = 344 mg/dL 65-99 H GLU) BLOOD UREA NITROGEN 15 mg/dL 7-18 N (test code = BUN) GLOMERULAR FILTRATION 63 Report ing units: RATE (test code = ml/min/1.7 3m\S\2 GFR) (Modified MDRD Formula)If age < 18 years, GFR is n ot applicable. KD/ DOQI Clinical Practi ce Guidelines: Sta ge 1: Kidney damage w /normal or increased GF R >90Stage 2: Kid rich damage w/mild d ecrease in GFR 60 - 89Stage 3: Mode rate decrease in GFR 30 - 59Stage 4: Ginny re decrease in GFR 15 - 29Stage 5: Kidn ey failure < 15 (or alie lysis) CREATININE (test code 1.0 mg/dL 0.6-1.0 N = CREAT) TOTAL PROTEIN (test 8.1 g/dL 6.4-8.2 N code = PROT) ALBUMIN (test code = 3.7 g/dL 3.4-5.0 N ALB) GLOBULIN (test code = 4.4 gm/dL 2.3-3.5 H GLOB) ALBUMIN/GLOBULIN 0.8 1.5-2.2 L RATIO (test code = A/G) CALCIUM (test code = 8.6 mg/dL 7.8-10.9 N CA) BILIRUBIN TOTAL (test 0.4 mg/dL 0.0-1.1 N code = BILT) SGOT/AST (test code = 18 U/L 15-37 N Report ing units: AST) International U nits/L SGPT/ALT (test code = 29 U/L 10-30 N Report ing units: ALT) International U nits/L ALKALINE PHOSPHATASE 97 U/L 45-117 N TOTAL (test code = ALKP) THYROID STIMULATING [id number] 17:06:00 Test Item Value Reference Range Interpretation Comments THYROID STIMULATING 1.57 mcgIU/mL 0.400-4.00 N Reporti ng units: HORMONE (test code = Interna tional Units/L TSH) COMPREHENSIVE METABOLIC [id number] 16:45:00 Test Item Value Reference Range Interpretation Comments SODIUM (test code = NA) 135 mmol/L 136-145 L POTASSIUM (test code = K) 3.0 mmol/L 3.5-5.1 L CHLORIDE (test code = CL) 99 mmol/L 98-107 N CARBON DIOXIDE (test code = CO2) 28 mmol/L 21-32 N GLUCOSE (test code = GLU) mg/dL 65-99 BLOOD UREA NITROGEN (test code = 15 mg/dL 7-18 N BUN) GLOMERULAR FILTRATION RATE (test code = GFR) CREATININE (test code = CREAT) mg/dL 0.6-1.0 TOTAL PROTEIN (test code = PROT) g/dL 6.4-8.2 ALBUMIN (test code = ALB) g/dL 3.4-5.0 GLOBULIN (test code = GLOB) gm/dL 2.3-3.5 ALBUMIN/GLOBULIN RATIO (test code 1.5-2.2 = A/G) CALCIUM (test code = CA) 8.6 mg/dL 7.8-10.9 N BILIRUBIN TOTAL (test code = BILT) mg/dL 0.0-1.1 SGOT/AST (test code = AST) U/L 15-37 SGPT/ALT (test code = ALT) U/L 10-30 ALKALINE PHOSPHATASE TOTAL (test U/L 45-117 code = ALKP) THYROID STIMULATING [id number] 16:45:00 Test Item Value Reference Range Interpretation Comments THYROID STIMULATING HORMONE (test mcgIU/mL 0.400-4.00 code = TSH) CBC W/AUTO [id number] 16:26:00 Test Item Value Reference Range Interpretation Comments WHITE BLOOD CELL (test code = 12.0 K/mm3 4.8-10.8 H WBC) RED BLOOD CELL (test code = RBC) 5.43 M/mm3 4.2-5.4 H HEMOGLOBIN (test code = HGB) 14.7 gm/DL 12.0-16.0 N HEMATOCRIT (test code = HCT) 42.1 % 34.7-43.3 N MEAN CELL VOLUME (test code = 77.5 fL 81-99 L MCV) MEAN CELL HGB (test code = MCH) 27.1 pg 27-31 N MEAN CELL HGB CONCETRATION (test 34.9 gm/dL 33-37 N code = MCHC) RED CELL DISTRIBUTION WIDTH (test 12.9 % 11.5-14.5 N code = RDW) PLATELET COUNT (test code = PLT) 325 X10(3) 130-400 N MEAN PLATELET VOLUME (test code = 11.1 fL 9.4-12.4 N MPV) NEUTROPHIL % (test code = NT%) 58.5 % 51.5-79.7 N IMMATURE GRANULOCYTE % (test code 0.300 % 0.108-0.322 N = IG%) LYMPHOCYTE % (test code = LY%) 33.5 % 14-40 N MONOCYTE % (test code = MO%) 5.8 % 4.0-10.2 N EOSINOPHIL % (test code = EO%) 1.5 % 0-4.1 N BASOPHIL % (test code = BA%) 0.4 % 0.1-0.7 N NUCLEATED RBC % (test code = 0 % 0-0 N NRBC%) NEUTROPHIL # (test code = NT#) 7.0 K/mm3 2.5-8.6 N IMMATURE GRANULOCYTE # (test code 0.040 K/mm3 0.0052-0.0224 H = IG#) LYMPHOCYTE # (test code = LY#) 4.0 K/mm3 1.1-3.6 H MONOCYTE # (test code = MO#) 0.7 K/mm3 0.3-0.9 N EOSINOPHIL # (test code = EO#) 0.18 # 0.0-0.4 N BASOPHIL # (test code = BA#) 0.05 K/mm3 0.0-0.2 N NUCLEATED RBC # (test code = 0.00 K/mm3 0.00-0.20 N NRBC#) - XR CHEST 1 [id number] 16:07:00 FAX: Chaparro Orellana MD [phone] [place]: ER St: PRE Name: MAYA GOODWIN [facility] : 1970 Age/S: 48/F [address] [facility] Unit #: [id number] Loc: [place], [place] [address] Phys: Chaparro Guzmán MD Acct: [id number] Dis Date: Status: PRE ER PHONE #: [phone] Exam Date: 12/22/2018 1550 FAX #: [phone] Reason: CP EXAMS: CPT CODE: [id number] XR CHEST 1 V 43212 Single view chest Indication: CP Comparison: 08/11/2018. Findings: Frontal view of the chest demonstrate no consolidation,pleural effusions or pneumothorax. The cardiac silhouette is normal in size. No acute osseous abnormality is identified. Impression: No acute cardiopulmonary abnormality. at 7300 Reported and signed by: THOMAS PERRY M.D. CC: Chaparro Guzmán MD Technologist: Maya Garnica, RT(R)(ARRT) Transcribed Date/Time/By: 12/22/2018(0327) :[email or web address] Orig Print D/T: S: 12/22/2018 (6342) Automated exposure control, iterative reconstruction technique, and/oradjustment of mA and/or kV according to patient's size was utilizedfor optimum radiation dose reduction. PAGE 1 Signed Report TROPONIN I [id number] 15:58:00 Test Item Value Reference Range Interpretation Comments TROPONIN I RAPID 0.01 NG/ML 0.00-0.08 N 0.00 - 0.08 (test code = Normal0.09 - 0. 40 TROPIRAP) Indeterminate f or AMI 0.41 and above Compatible with AMI [id number] 16:57:00 Test Item Value Reference Range Interpretation Comments GLUBED (test code = GLUBED) 167 mg/dL 70-110 H
--- NOTE | 2020-01-29 21:42 | RAD REPORT ---
EXAM DESCRIPTION: RAD - Chest Single View - 01/29/2020 9:23 pm CLINICAL HISTORY: SWELLING Chest pain. COMPARISON: No comparisons FINDINGS: Portable technique limits examination quality. The lungs are grossly clear. The heart is normal in size. No displaced fractures. IMPRESSION: No acute intrathoracic process suspected.
[2020-01-29] MEDS ORDERED: LIDOCAINE 1% MPF 2 ML AMPULE ONE (21:50)
[2020-01-29] MEDS ORDERED: CEFTRIAXONE 1000 MG/VIAL ONE (21:51)
[2020-01-29] MEDS ORDERED: hydroCHLOROthiazide 25 MG TAB ONE (21:52)
[2020-01-29 22:06] VITALS: BP 186/101; TEMP 98.6; O2SAT 100
[2020-01-29 22:59] LABS: Urine Bacteria LOADED /HPF (<20); Urine Culture Reflex Order NOT NEEDED
[2020-01-29 23:00] LABS: Urine RBC NONE SEEN /HPF (NONE SEEN); Urine Urothelial Cells <5 /HPF (NONE SEEN)
[2020-01-29 23:01] LABS: Urine Blood TRACE (NEG); Urine Glucose 2+ (NEG); Urine Protein 2+ (NEG); Urine pH 5.5 (5.0-7.0)
== END 2020-01-29 21:59 | disposition home or self-care (01) ==
LOC: ER 19:34
DX: N39.0 Urinary tract infection, site not specified (principal); I10 Essential (primary) hypertension; R60.0 Localized edema
CPT/HCPCS: 87088; 87086; 87077; 87186; 71045; 96372; 99284; J2001; 81003; 81015